=== PATIENT | male | born 1955 | race Two or more races ===

== ENCOUNTER 2018-01-10 06:15 | Day surgery (SDC) | payer OTHER ==
[~2018-01-10 06:15] MED LIST: ALLOPURINOL PO; CRESTOR40 MG PO; ECOTRIN81 MG PO; EPLERENONE25 MG PO; TIROSINT150 MCG PO
== END 2018-01-10 09:50 | disposition home or self-care (01) ==
LOC: AMB-ENDOS 06:15
DX: C20 Malignant neoplasm of rectum (principal)

== ENCOUNTER 2019-04-17 06:00 | Day surgery (SDC) | payer OTHER | END 2019-04-17 09:20 | disposition home or self-care (01) | LOC: AMB-ENDOS 06:00 | DX: K62.89 Other specified diseases of anus and rectum (principal) ==

== ENCOUNTER 2020-07-08 05:52 | Day surgery (SDC) | payer OTHER | END 2020-07-08 11:00 | disposition home or self-care (01) | LOC: AMB-ENDOS 05:52 | PROVIDERS: ATTEND Colon & Rectal Surgery | DX: K62.89 Other specified diseases of anus and rectum (principal); K64.0 First degree hemorrhoids; Z12.11 Encounter for screening for malignant neoplasm of colon ==